=== PATIENT | female | born 1995 | race Caucasian/White ===

== ENCOUNTER 2016-07-25 00:14 | Emergency (ER) | payer MEDICAID ==
[~2016-07-25] VITALS: Ht 165.1 cm; Wt 81.0 kg
[2016-07-25] MEDS ORDERED: ACETAMINOPHEN WITH CODEINE 300/30MG TABLET PO ONE (04:30)
[2016-07-25 04:55] VITALS: BP 108/57
== END 2016-07-25 05:02 | disposition home or self-care (01) ==
LOC: EDSEX 00:14 → ER 00:15 → EDSEX 00:15 → ER 05:02
DX: M94.0 Chondrocostal junction syndrome [Tietze] (principal); F12.10 Cannabis abuse, uncomplicated
CPT/HCPCS: 71010; 81025; 93005; 99284; Z7610